=== PATIENT | female | born 1945 | race Caucasian/White ===

== ENCOUNTER 2016-06-29 07:18 | Day surgery (SDC) | payer MEDICARE, OTHER ==
[~2016-06-29 07:18] MED LIST: Lactated Ringers 1,000 ML IV SCH; Sodium Chloride 0.9% 10 ML Syringe FLUSH PRN
[2016-06-29] MEDS ORDERED: Propofol 200 MG/20 ML SDV IV ONE (08:30)
--- NOTE | 2016-06-29 08:58 | PCM.OPNOTE ---
- General Post-Op/Procedure Note Date of Surgery/Procedure: 06/29/16 Operative Procedure(s): c scope Findings: normal exam Pre Op Diagnosis: personal hx of colon polyp Post-Op Diagnosis: nl colon Anesthesia Technique: MAC Primary Surgeon: Julian Bowie Anesthesia Provider: Avery Ingram Pathology: none Complications: None Condition: Good Free Text/Narrative:: see dictation
--- NOTE | 2016-06-29 09:27 | OR ---
DATE OF OPERATION: 06/29/2016 SURGEON: Julian Bowie MD PROCEDURE PERFORMED: Colonoscopy. PREOPERATIVE DIAGNOSIS: Personal history of colon polyps. POSTOPERATIVE DIAGNOSIS: Normal colon. INDICATIONS FOR PROCEDURE: This is a 70-year-old white female with a personal history of adenomatous polyps. She presents now for followup colonoscopy. DESCRIPTION OF OPERATION: After an excellent IV sedation was administered, digital rectal exam was performed. No marked abnormality was noted. The flexible colonoscope was inserted and advanced to the cecum without difficulty. The following findings were noted. Ascending colon, unremarkable. Transverse colon, unremarkable. Descending colon, unremarkable. Sigmoid and rectum unremarkable. Colon was deflated as the scope was removed. The patient tolerated the procedure well and was taken to recovery room in good condition. Repeat colonoscopy recommended in 10 years, isabel barnhart /[id number] /MODL
[2016-06-29 09:38] VITALS: BP 123/60
== END 2016-06-29 10:00 | disposition home or self-care (01) ==
LOC: FB.SDS 07:18
PROVIDERS: ATTEND Surgery
PROC: 0DJD8ZZ Inspection of Lower Intestinal Tract, Via Natural or Artificial Opening Endoscopic (ICD-10-PCS; principal; 2016-06-29)
DX: Z12.11 Encounter for screening for malignant neoplasm of colon (principal); Z86.010 Personal history of colon polyps; Z79.899 Other long term (current) drug therapy; E78.2 Mixed hyperlipidemia; I10 Essential (primary) hypertension
CPT/HCPCS: 00810; G0121; J2704; J7120

== ENCOUNTER 2021-04-12 01:23 | Observation (INO) | payer MEDICARE, OTHER ==
[2021-04-12] MEDS ORDERED: Sodium Chloride 0.9% 1,000 ML IV ONE ×3 (01:41→04:15)
--- NOTE | 2021-04-12 01:49 | EDM.PDOC ---
ED HPI GENERAL MEDICAL PROBLEM - General Chief Complaint: General Stated Complaint: PASSING BLOOD Time Seen by Provider: 04/12/21 01:25 Source of Information: Reports: Patient, Family History Limitations: Reports: No Limitations - History of Present Illness INITIAL COMMENTS - FREE TEXT/NARRATIVE: c/o BRBPR pt ate salad at [employer] at lunch, on arriving home with at 3:30p she rushed to bathroom and passed loose stools that "looked a little dark," had V x 1 had 4 more episodes of loose stools with BRB, some cramping of lower abd prior to stool, some soreness now in suprapubic area last colonoscopy here ~3y ago with Dr Bowie, reports no polyps, says it "was normal," next colonscopy planned in 10 yr not on ASA or anticoagulation no prior CV or pul problems has had JOHNSON with BSO, into 2017 she had bladder and vaginal wall reconstruction, no other abd surgeries has had COVID vax x 2 and booster, no had COVID illness Lower Abdomen Pain Score (Numeric/FACES): 5 - Related Data Allergies Allergy/AdvReac Type Severity Reaction Status Date / Time meperidine HCl [From Demerol] Allergy Nausea and Verified 03/26/13 08:18 Vomiting Home Meds: Home Meds Simvastatin [Zocor] 20 mg PO DAILY 03/25/13 [History] lisinopriL [Prinivil] 20 mg PO DAILY 03/25/13 [History] Past Medical History - Past Health History Medical/Surgical History: Denies Medical/Surgical History HEENT History: Reports: Cataract Cardiovascular History: Reports: High Cholesterol, Hypertension Gastrointestinal History: Reports: Colon Polyp Genitourinary History: Reports: Other (See Below) Other Genitourinary History: PROLAPSE BLADDER; DOCTORING IN [employer] History: Reports: Musculoskeletal History: Reports: None Neurological History: Reports: None Psychiatric History: Reports: None Endocrine/Metabolic History: Reports: Multinodular Thyroid, Osteopenia Hematologic History: Reports: None Immunologic History: Reports: None Oncologic (Cancer) History: Reports: None Dermatologic History: Reports: None - Past Surgical History HEENT Surgical History: Reports: Cataract Surgery Female Surgical History: Reports: Hysterectomy, Salpingo-Oophorectomy Social & Family History - Caffeine Use Caffeine Use: Reports: Coffee ED ROS GENERAL - Review of Systems Review Of Systems: See Below Constitutional: Reports: No Symptoms. Denies: Fever, Chills, Malaise, Weakness HEENT: Reports: No Symptoms Respiratory: Reports: No Symptoms. Denies: Shortness of Breath Cardiovascular: Reports: No Symptoms. Denies: Chest Pain Endocrine: Reports: No Symptoms GI/Abdominal: Reports: Abdominal Pain, Bloody Stool, Diarrhea, Hematemesis : Reports: No Symptoms Musculoskeletal: Reports: No Symptoms Skin: Reports: No Symptoms Neurological: Reports: No Symptoms Psychiatric: Reports: No Symptoms Hematologic/Lymphatic: Reports: No Symptoms Immunologic: Reports: No Symptoms ED EXAM, GENERAL - Physical Exam Exam: See Below Exam Limited By: No Limitations General Appearance: Alert, WD/WN, No Apparent Distress Eye Exam: Bilateral Eye: Normal Inspection Ears: Hearing Grossly Normal Nose: Normal Inspection Throat/Mouth: Normal Inspection, Normal Lips, Normal Voice, No Airway Compromise Head: Atraumatic, Normocephalic Neck: Normal Inspection Respiratory/Chest: No Respiratory Distress, Lungs Clear, Normal Breath Sounds, No Accessory Muscle Use, Chest Non-Tender Cardiovascular: No Edema, No Murmur, No Rub, Tachycardia GI/Abdominal: Normal Bowel Sounds, Soft, No Distention, Other (1+ suprapubic tender and just to right and left of midline, nontender LLQ/RUQ, flanks NT, upper abd NT) Rectal (Female) Exam: Normal Exam, Other (tight sphincter and unable to do MARY with help of RN Bella, using glove and gel, no ext hemorrhoids, no perianal blood) Back Exam: Normal Inspection, Full Range of Motion, NT Extremities: Normal Inspection, Non-Tender, No Pedal Edema Neurological: Alert, Oriented, CN II-XII Intact, Normal Cognition, No Motor/Sensory Deficits Psychiatric: Normal Affect, Normal Mood Skin Exam: Warm, Dry, Intact, Normal Color, No Rash Lymphatic: No Adenopathy (repeat HR 113 with BP 190/89, mild to moderate anxiety) Course - Vital Signs Last Recorded V/S: Last Vital Signs Temp 36.4 C 04/12/21 01:26 Pulse 99 04/12/21 02:56 Resp 19 04/12/21 02:06 BP 192/92 H 04/12/21 02:56 Pulse Ox 95 04/12/21 02:56 - Orders/Labs/Meds Orders: Active Orders 24 hr Category Date Time Status Admission Status [Patient Status] [ADT] Routine ADT 04/12/21 03:22 Ordered Abdomen Pelvis w Cont [CT] Stat Exams 04/12/21 01:47 Ordered Sodium Chloride 0.9% [Normal Saline] 1,000 ml Med 04/12/21 02:40 Ordered IV .BOLUS Medication Orders Sodium Chloride (Normal Saline) 1,000 mls @ 999 mls/hr IV .BOLUS ONE Stop: 04/12/21 03:40 Last Admin: 04/12/21 03:03 Dose: 999 mls/hr Documented by: ITALIA Labs: Laboratory Tests 04/12/21 04/12/21 04/12/21 Range/Units 01:45 01:45 01:45 WBC 10.2 (3.0-10.3) x10-3/uL RBC 4.40 (3.60-5.20) x10(6)uL Hgb 13.3 (11.4-15.5) g/dL Hct 39.6 (34.2-48.2) % MCV 90.0 (76.7-100.5) fL MCH 30.2 (23.9-33.9) pg MCHC 33.5 (31.9-34.8) g/dL RDW 13.4 (12.3-16.5) % Plt Count 289 (151-488) x10(3)uL MPV 8.1 (7.1-12.4) fL Neut % (Auto) 79.7 H (30.8-76.2) % Lymph % (Auto) 11.8 L (18.4-52.1) % [place] % (Auto) 7.6 (4.4-15.7) % Eos % (Auto) 0.5 L (0.6-8.1) % Baso % (Auto) 0.4 (0.2-1.5) % Neut # (Auto) 8.1 H (1.5-6.3) x10-3/uL Lymph # (Auto) 1.2 (1.0-4.4) x10-3/uL [place] # (Auto) 0.8 (0.3-1.0) x10-3/uL Eos # (Auto) 0.1 (0.0-0.8) x10-3/uL Baso # (Auto) 0.0 (0.0-0.1) x10-3/uL PT 10.1 (9.0-11.1) sec INR 0.94 L (1.00-1.24) Sodium 141 (135-145) mmol/L Potassium 3.9 (3.5-5.3) mmol/L Chloride 104 (100-110) mmol/L Carbon Dioxide 26 (21-32) mmol/L BUN 19 H (7-18) mg/dL Creatinine 1.2 H (0.55-1.02) mg/dL Est Cr Clr Drug Dosing 34.54 mL/min Estimated GFR (MDRD) 44 L (>60) BUN/Creatinine Ratio 15.8 (9-20) Glucose 126 H (80-116) mg/dL Calcium 9.1 (8.6-10.2) mg/dL Total Bilirubin 0.6 (0.1-1.3) mg/dL AST 24 (5-25) IU/L ALT 22 (12-36) U/L Alkaline Phosphatase 75 (56-112) IU/L Troponin I (4.0-60.3) pg/mL C-Reactive Protein (0.5-0.9) mg/dL Total Protein 7.5 (6.0-8.0) g/dL Albumin 4.1 (3.2-4.6) g/dL Globulin 3.4 g/dL Albumin/Globulin Ratio 1.2 Lipase (73-393) U/L Urine Color (YELLOW) Urine Appearance (CLEAR) Urine pH (5.0-6.5) Ur Specific [place] (1.010-1.025) Urine Protein (NEGATIVE) mg/dL Urine Glucose (UA) (NORMAL) mg/dL Urine Ketones (NEGATIVE) mg/dL Urine Occult Blood (NEGATIVE) Urine Nitrite (NEGATIVE) Urine Bilirubin (NEGATIVE) Urine Urobilinogen (NEGATIVE) mg/dL Ur Leukocyte Esterase (NEGATIVE) U Hyaline Cast (Auto) (NS) Urine RBC (0-5) Urine WBC (0-5) Ur Squamous Epith Cells (NS,R,O) Urine Bacteria (NS) SARS-CoV-2 RNA (FE) (NEGATIVE) 01/04/22 01/04/22 01/04/22 Range/Units 01:45 01:45 01:45 WBC (3.0-10.3) x10-3/uL RBC (3.60-5.20) x10(6)uL Hgb (11.4-15.5) g/dL Hct (34.2-48.2) % MCV (76.7-100.5) fL MCH (23.9-33.9) pg MCHC (31.9-34.8) g/dL RDW (12.3-16.5) % Plt Count (151-488) x10(3)uL MPV (7.1-12.4) fL Neut % (Auto) (30.8-76.2) % Lymph % (Auto) (18.4-52.1) % [place] % (Auto) (4.4-15.7) % Eos % (Auto) (0.6-8.1) % Baso % (Auto) (0.2-1.5) % Neut # (Auto) (1.5-6.3) x10-3/uL Lymph # (Auto) (1.0-4.4) x10-3/uL [place] # (Auto) (0.3-1.0) x10-3/uL Eos # (Auto) (0.0-0.8) x10-3/uL Baso # (Auto) (0.0-0.1) x10-3/uL PT (9.0-11.1) sec INR (1.00-1.24) Sodium (135-145) mmol/L Potassium (3.5-5.3) mmol/L Chloride (100-110) mmol/L Carbon Dioxide (21-32) mmol/L BUN (7-18) mg/dL Creatinine (0.55-1.02) mg/dL Est Cr Clr Drug Dosing mL/min Estimated GFR (MDRD) (>60) BUN/Creatinine Ratio (9-20) Glucose (80-116) mg/dL Calcium (8.6-10.2) mg/dL Total Bilirubin (0.1-1.3) mg/dL AST (5-25) IU/L ALT (12-36) U/L Alkaline Phosphatase (56-112) IU/L Troponin I 57.4 (4.0-60.3) pg/mL C-Reactive Protein < 0.2 L (0.5-0.9) mg/dL Total Protein (6.0-8.0) g/dL Albumin (3.2-4.6) g/dL Globulin g/dL Albumin/Globulin Ratio Lipase 306 (73-393) U/L Urine Color (YELLOW) Urine Appearance (CLEAR) Urine pH (5.0-6.5) Ur Specific [place] (1.010-1.025) Urine Protein (NEGATIVE) mg/dL Urine Glucose (UA) (NORMAL) mg/dL Urine Ketones (NEGATIVE) mg/dL Urine Occult Blood (NEGATIVE) Urine Nitrite (NEGATIVE) Urine Bilirubin (NEGATIVE) Urine Urobilinogen (NEGATIVE) mg/dL Ur Leukocyte Esterase (NEGATIVE) U Hyaline Cast (Auto) (NS) Urine RBC (0-5) Urine WBC (0-5) Ur Squamous Epith Cells (NS,R,O) Urine Bacteria (NS) SARS-CoV-2 RNA (FE) (NEGATIVE) 04/12/21 04/12/21 Range/Units 02:01 02:20 WBC (3.0-10.3) x10-3/uL RBC (3.60-5.20) x10(6)uL Hgb (11.4-15.5) g/dL Hct (34.2-48.2) % MCV (76.7-100.5) fL MCH (23.9-33.9) pg MCHC (31.9-34.8) g/dL RDW (12.3-16.5) % Plt Count (151-488) x10(3)uL MPV (7.1-12.4) fL Neut % (Auto) (30.8-76.2) % Lymph % (Auto) (18.4-52.1) % [place] % (Auto) (4.4-15.7) % Eos % (Auto) (0.6-8.1) % Baso % (Auto) (0.2-1.5) % Neut # (Auto) (1.5-6.3) x10-3/uL Lymph # (Auto) (1.0-4.4) x10-3/uL [place] # (Auto) (0.3-1.0) x10-3/uL Eos # (Auto) (0.0-0.8) x10-3/uL Baso # (Auto) (0.0-0.1) x10-3/uL PT (9.0-11.1) sec INR (1.00-1.24) Sodium (135-145) mmol/L Potassium (3.5-5.3) mmol/L Chloride (100-110) mmol/L Carbon Dioxide (21-32) mmol/L BUN (7-18) mg/dL Creatinine (0.55-1.02) mg/dL Est Cr Clr Drug Dosing mL/min Estimated GFR (MDRD) (>60) BUN/Creatinine Ratio (9-20) Glucose (80-116) mg/dL Calcium (8.6-10.2) mg/dL Total Bilirubin (0.1-1.3) mg/dL AST (5-25) IU/L ALT (12-36) U/L Alkaline Phosphatase (56-112) IU/L Troponin I (4.0-60.3) pg/mL C-Reactive Protein (0.5-0.9) mg/dL Total Protein (6.0-8.0) g/dL Albumin (3.2-4.6) g/dL Globulin g/dL Albumin/Globulin Ratio Lipase (73-393) U/L Urine Color Yellow (YELLOW) Urine Appearance Clear (CLEAR) Urine pH 5.0 (5.0-6.5) Ur Specific [place] 1.025 (1.010-1.025) Urine Protein 30 H (NEGATIVE) mg/dL Urine Glucose (UA) Normal (NORMAL) mg/dL Urine Ketones 50 H (NEGATIVE) mg/dL Urine Occult Blood Moderate H (NEGATIVE) Urine Nitrite Negative (NEGATIVE) Urine Bilirubin Negative (NEGATIVE) Urine Urobilinogen Normal (NEGATIVE) mg/dL Ur Leukocyte Esterase Small H (NEGATIVE) U Hyaline Cast (Auto) Moderate H (NS) Urine RBC 0-5 (0-5) Urine WBC 0-5 (0-5) Ur Squamous Epith Cells Occasional (NS,R,O) Urine Bacteria Rare H (NS) SARS-CoV-2 RNA (FE) Negative (NEGATIVE) Meds: Medications Generic Name Dose Route Start Last Admin Trade Name Freq PRN Reason Stop Dose Admin Sodium Chloride 1,000 mls @ 999 mls/hr 04/12/21 02:40 04/12/21 03:03 Normal Saline IV 04/12/21 03:40 999 mls/hr .BOLUS ONE Administration Discontinued Medications Generic Name Dose Route Start Last Admin Trade Name Ebenezer PRN Reason Stop Dose Admin Sodium Chloride 1,000 mls @ 999 mls/hr 04/12/21 01:41 04/12/21 02:04 Normal Saline IV 04/12/21 02:41 999 mls/hr .BOLUS ONE Administration Iopamidol 75 ml 04/12/21 02:23 04/12/21 02:34 Iopamidol 755 Mg/Ml 75 Ml Bottle IV 04/12/21 02:24 75 ml ONETIME ONE Administration - Re-Assessments/Exams Free Text/Narrative Re-Assessment/Exam: 04/12/21 03:12 CT abd/pelvis with IV contrast with mod wall thickening of descending colon, doubt ischemia, suspect infectious colitis, IBD is a consideration altho less likely inc'd BUN/creat without comparison COVID neg urine with 50 mg/dl ketones passed 20 ml red/maroon blood with one small clot no n/v here in ED will plan to admit for IV antbxs and IVFs, d/w Shelbi charge nurse no surgeon on-call, Dr Fernando will be rounding in AM and doing procedures 04/12/21 03:24 pt agrees to admission, she just passed a second BM while in ED, again 20 ml of red/maroon blood, no stool Departure - Departure Time of Disposition: 03:26 Disposition: Refer to Observation Condition: Good Clinical Impression: Hematochezia, Colitis, Abdominal pain, Acute renal insufficiency, Moderate dehydration, Elevated blood pressure, situational - Discharge Information *PRESCRIPTION DRUG MONITORING PROGRAM REVIEWED*: Not Applicable *COPY OF PRESCRIPTION DRUG MONITORING REPORT IN PATIENT KARYN: Not Applicable Forms: ED Department Discharge Sepsis Event Note (ED) - Evaluation Sepsis Screening Result: No Definite Risk - Focused Exam Vital Signs: Vital Signs Temp Pulse Resp BP Pulse Ox 04/12/21 02:56 99 192/92 H 95 04/12/21 02:06 97 19 190/89 H 97 04/12/21 01:26 36.4 C 130 H 20 262/148 H 98 - My Orders Last 24 Hours: My Active Orders 04/12/21 01:47 Abdomen Pelvis w Cont [CT] Stat 04/12/21 02:40 Sodium Chloride 0.9% [Normal Saline] 1,000 ml IV .BOLUS 04/12/21 03:22 Admission Status [Patient Status] [ADT] Routine - Assessment/Plan Last 24 Hours: My Active Orders 04/12/21 01:47 Abdomen Pelvis w Cont [CT] Stat 04/12/21 02:40 Sodium Chloride 0.9% [Normal Saline] 1,000 ml IV .BOLUS 04/12/21 03:22 Admission Status [Patient Status] [ADT] Routine
[2021-04-12] MEDS ORDERED: Iopamidol 755 Mg/ML 75 ML Bottle IV ONE (02:23)
[2021-04-12] MEDS: Sodium Chloride 0.9% 1,000 ML IV ONE ×2 (03:03→04:15)
[2021-04-12] MEDS ORDERED: Aluminum Hydroxide/Magnesium Hydroxide Susp 30 ML Cup PO PRN (03:31)
[2021-04-12] MEDS ORDERED: Zolpidem 5 MG Tab PO PRN (03:31)
[2021-04-12] MEDS ORDERED: Ondansetron 4 MG/2 ML SDV IV PRN (03:31)
[2021-04-12] MEDS ORDERED: Piperacillin/Tazobactam 4.5 GM in Sodium Chloride 0.9% 100 ML IV SCH (03:45)
[2021-04-12] MEDS ORDERED: Piperacillin/Tazobactam 2.25 GM in Sodium Chloride 0.9% 50 ML IV SCH (04:00)
[2021-04-12] MEDS: Acetaminophen 500 MG Tab PO SCH ×4 (05:09→21:00)
[2021-04-12] MEDS: Pantoprazole 40 MG Vial IVPUSH SCH (05:33)
[2021-04-12] MEDS: Dextrose 5%-0.45% NaCl 1,000 ML IV SCH ×4 (05:56→22:13)
[2021-04-12] MEDS ORDERED: Labetalol 20 MG/4 ML Syringe IVPUSH ONE (08:30)
[2021-04-12] MEDS ORDERED: Morphine 4 MG/ML VIAL IVPUSH PRN (08:30)
[2021-04-12] MEDS ORDERED: Sodium Chloride 0.9% 10 ML Syringe FLUSH PRN (08:43)
--- NOTE | 2021-04-12 08:44 | PCM.HP.2 ---
H&P History of Present Illness - General Date of Service: 04/12/21 Admit Problem/Dx: Admission Diagnosis/Problem Admission Diagnosis/Problem Colitis Source of Information: Patient History Limitations: Reports: No Limitations - History of Present Illness Initial Comments - Free Text/Narative: Stephanie presented to the ED last night with abdominal cramping, and diarrhea with stools streaked with blood. This was fairly sudden onset yesterday afternoon. She also has nausea, but denies any systemic symptoms of fever or chills. Has a history of hypertension, hyperlipidemia well controlled. She said the radical abdominal hysterectomy.No recent antibiotic use Lower Abdomen Pain Score (Numeric/FACES): 5 - Related Data Allergies/Adverse Reactions: Allergies Allergy/AdvReac Type Severity Reaction Status Date / Time meperidine HCl [From Demerol] Allergy Nausea and Verified 03/26/13 08:18 Vomiting Home Medications: Home Meds Simvastatin [Zocor] 20 mg PO BEDTIME 03/25/13 [History] lisinopriL [Prinivil] 20 mg PO DAILY 03/25/13 [History] Past Medical History - Past Health History Medical/Surgical History: Denies Medical/Surgical History HEENT History: Reports: Cataract Cardiovascular History: Reports: High Cholesterol, Hypertension Gastrointestinal History: Reports: Colon Polyp Genitourinary History: Reports: Other (See Below) Other Genitourinary History: Bladder surgery December 2016 in [facility]. [employer] History: Reports: Musculoskeletal History: Reports: None Neurological History: Reports: None Psychiatric History: Reports: None Endocrine/Metabolic History: Reports: Multinodular Thyroid, Osteopenia, Other (See Below) Other Endocrine/Metabolic History: Continues to monitor Thyroid with her speci alist. . Hematologic History: Reports: None Immunologic History: Reports: None Oncologic (Cancer) History: Reports: None Dermatologic History: Reports: None - Infectious Disease History Infectious Disease History: Reports: Other (See Below) Other Infectious Disease History: Denies MRSA. - Past Surgical History HEENT Surgical History: Reports: Cataract Surgery, Other (See Below) Other HEENT Surgeries/Procedures: Bilateral. GI Surgical History: Reports: Colonoscopy, Polypectomy Female Surgical History: Reports: Hysterectomy, Salpingo-Oophorectomy Social & Family History - Family History Family Medical History: No Pertinent Family History - Tobacco Use Tobacco Use Status *Q: Never Tobacco User - Caffeine Use Caffeine Use: Reports: Coffee - Recreational Drug Use Recreational Drug Use: No H&P Review of Systems - Review of Systems: Review Of Systems: Comprehensive ROS is negative, except as noted in HPI. Exam - Exam Exam: See Below - Vital Signs Vital Signs: Last Vital Signs Temp 98 F 04/12/21 05:50 Pulse 93 04/12/21 05:50 Resp 18 04/12/21 05:50 BP 168/77 H 04/12/21 05:50 Pulse Ox 98 04/12/21 05:50 Weight: 67.948 kg - Exam HEENT: PERRLA Neck: Supple Lungs: Clear to Auscultation Cardiovascular: Regular Rate GI/Abdominal Exam: Soft, Guarding, Tender. No: Distended, Rebound, Splenomegaly (Female) Exam: Deferred Rectal (Female) Exam: Deferred Back Exam: Normal Inspection Extremities: Normal Inspection Neurological: Cranial Nerves Intact Neuro Extensive - Mental Status: Alert, Oriented x3 Neuro Extensive - Motor, Sensory, Reflexes: CN II-XII Intact Psychiatric: Alert - Patient Data Lab Results Last 24 hrs: Laboratory Results - last 24 hr 04/12/21 04/12/21 04/12/21 Range/Units 01:45 01:45 01:45 WBC 10.2 (3.0-10.3) x10-3/uL RBC 4.40 (3.60-5.20) x10(6)uL Hgb 13.3 (11.4-15.5) g/dL Hct 39.6 (34.2-48.2) % MCV 90.0 (76.7-100.5) fL MCH 30.2 (23.9-33.9) pg MCHC 33.5 (31.9-34.8) g/dL RDW 13.4 (12.3-16.5) % Plt Count 289 (151-488) x10(3)uL MPV 8.1 (7.1-12.4) fL Neut % (Auto) 79.7 H (30.8-76.2) % Lymph % (Auto) 11.8 L (18.4-52.1) % [place] % (Auto) 7.6 (4.4-15.7) % Eos % (Auto) 0.5 L (0.6-8.1) % Baso % (Auto) 0.4 (0.2-1.5) % Neut # (Auto) 8.1 H (1.5-6.3) x10-3/uL Lymph # (Auto) 1.2 (1.0-4.4) x10-3/uL [place] # (Auto) 0.8 (0.3-1.0) x10-3/uL Eos # (Auto) 0.1 (0.0-0.8) x10-3/uL Baso # (Auto) 0.0 (0.0-0.1) x10-3/uL PT 10.1 (9.0-11.1) sec INR 0.94 L (1.00-1.24) Sodium 141 (135-145) mmol/L Potassium 3.9 (3.5-5.3) mmol/L Chloride 104 (100-110) mmol/L Carbon Dioxide 26 (21-32) mmol/L BUN 19 H (7-18) mg/dL Creatinine 1.2 H (0.55-1.02) mg/dL Est Cr Clr Drug Dosing 34.54 mL/min Estimated GFR (MDRD) 44 L (>60) BUN/Creatinine Ratio 15.8 (9-20) Glucose 126 H (80-116) mg/dL Lactic Acid (0.4-2.0) mmol/L Calcium 9.1 (8.6-10.2) mg/dL Total Bilirubin 0.6 (0.1-1.3) mg/dL AST 24 (5-25) IU/L ALT 22 (12-36) U/L Alkaline Phosphatase 75 (56-112) IU/L Troponin I (4.0-60.3) pg/mL C-Reactive Protein (0.5-0.9) mg/dL Total Protein 7.5 (6.0-8.0) g/dL Albumin 4.1 (3.2-4.6) g/dL Globulin 3.4 g/dL Albumin/Globulin Ratio 1.2 Lipase (73-393) U/L Urine Color (YELLOW) Urine Appearance (CLEAR) Urine pH (5.0-6.5) Ur Specific [place] (1.010-1.025) Urine Protein (NEGATIVE) mg/dL Urine Glucose (UA) (NORMAL) mg/dL Urine Ketones (NEGATIVE) mg/dL Urine Occult Blood (NEGATIVE) Urine Nitrite (NEGATIVE) Urine Bilirubin (NEGATIVE) Urine Urobilinogen (NEGATIVE) mg/dL Ur Leukocyte Esterase (NEGATIVE) U Hyaline Cast (Auto) (NS) Urine RBC (0-5) Urine WBC (0-5) Ur Squamous Epith Cells (NS,R,O) Urine Bacteria (NS) SARS-CoV-2 RNA (FE) (NEGATIVE) 04/12/21 04/12/21 04/12/21 Range/Units 01:45 01:45 01:45 WBC (3.0-10.3) x10-3/uL RBC (3.60-5.20) x10(6)uL Hgb (11.4-15.5) g/dL Hct (34.2-48.2) % MCV (76.7-100.5) fL MCH (23.9-33.9) pg MCHC (31.9-34.8) g/dL RDW (12.3-16.5) % Plt Count (151-488) x10(3)uL MPV (7.1-12.4) fL Neut % (Auto) (30.8-76.2) % Lymph % (Auto) (18.4-52.1) % [place] % (Auto) (4.4-15.7) % Eos % (Auto) (0.6-8.1) % Baso % (Auto) (0.2-1.5) % Neut # (Auto) (1.5-6.3) x10-3/uL Lymph # (Auto) (1.0-4.4) x10-3/uL [place] # (Auto) (0.3-1.0) x10-3/uL Eos # (Auto) (0.0-0.8) x10-3/uL Baso # (Auto) (0.0-0.1) x10-3/uL PT (9.0-11.1) sec INR (1.00-1.24) Sodium (135-145) mmol/L Potassium (3.5-5.3) mmol/L Chloride (100-110) mmol/L Carbon Dioxide (21-32) mmol/L BUN (7-18) mg/dL Creatinine (0.55-1.02) mg/dL Est Cr Clr Drug Dosing mL/min Estimated GFR (MDRD) (>60) BUN/Creatinine Ratio (9-20) Glucose (80-116) mg/dL Lactic Acid (0.4-2.0) mmol/L Calcium (8.6-10.2) mg/dL Total Bilirubin (0.1-1.3) mg/dL AST (5-25) IU/L ALT (12-36) U/L Alkaline Phosphatase (56-112) IU/L Troponin I 57.4 (4.0-60.3) pg/mL C-Reactive Protein < 0.2 L (0.5-0.9) mg/dL Total Protein (6.0-8.0) g/dL Albumin (3.2-4.6) g/dL Globulin g/dL Albumin/Globulin Ratio Lipase 306 (73-393) U/L Urine Color (YELLOW) Urine Appearance (CLEAR) Urine pH (5.0-6.5) Ur Specific [place] (1.010-1.025) Urine Protein (NEGATIVE) mg/dL Urine Glucose (UA) (NORMAL) mg/dL Urine Ketones (NEGATIVE) mg/dL Urine Occult Blood (NEGATIVE) Urine Nitrite (NEGATIVE) Urine Bilirubin (NEGATIVE) Urine Urobilinogen (NEGATIVE) mg/dL Ur Leukocyte Esterase (NEGATIVE) U Hyaline Cast (Auto) (NS) Urine RBC (0-5) Urine WBC (0-5) Ur Squamous Epith Cells (NS,R,O) Urine Bacteria (NS) SARS-CoV-2 RNA (FE) (NEGATIVE) 04/12/21 04/12/21 04/12/21 Range/Units 02:01 02:20 04:00 WBC (3.0-10.3) x10-3/uL RBC (3.60-5.20) x10(6)uL Hgb (11.4-15.5) g/dL Hct (34.2-48.2) % MCV (76.7-100.5) fL MCH (23.9-33.9) pg MCHC (31.9-34.8) g/dL RDW (12.3-16.5) % Plt Count (151-488) x10(3)uL MPV (7.1-12.4) fL Neut % (Auto) (30.8-76.2) % Lymph % (Auto) (18.4-52.1) % [place] % (Auto) (4.4-15.7) % Eos % (Auto) (0.6-8.1) % Baso % (Auto) (0.2-1.5) % Neut # (Auto) (1.5-6.3) x10-3/uL Lymph # (Auto) (1.0-4.4) x10-3/uL [place] # (Auto) (0.3-1.0) x10-3/uL Eos # (Auto) (0.0-0.8) x10-3/uL Baso # (Auto) (0.0-0.1) x10-3/uL PT (9.0-11.1) sec INR (1.00-1.24) Sodium (135-145) mmol/L Potassium (3.5-5.3) mmol/L Chloride (100-110) mmol/L Carbon Dioxide (21-32) mmol/L BUN (7-18) mg/dL Creatinine (0.55-1.02) mg/dL Est Cr Clr Drug Dosing mL/min Estimated GFR (MDRD) (>60) BUN/Creatinine Ratio (9-20) Glucose (80-116) mg/dL Lactic Acid 1.0 (0.4-2.0) mmol/L Calcium (8.6-10.2) mg/dL Total Bilirubin (0.1-1.3) mg/dL AST (5-25) IU/L ALT (12-36) U/L Alkaline Phosphatase (56-112) IU/L Troponin I (4.0-60.3) pg/mL C-Reactive Protein (0.5-0.9) mg/dL Total Protein (6.0-8.0) g/dL Albumin (3.2-4.6) g/dL Globulin g/dL Albumin/Globulin Ratio Lipase (73-393) U/L Urine Color Yellow (YELLOW) Urine Appearance Clear (CLEAR) Urine pH 5.0 (5.0-6.5) Ur Specific [place] 1.025 (1.010-1.025) Urine Protein 30 H (NEGATIVE) mg/dL Urine Glucose (UA) Normal (NORMAL) mg/dL Urine Ketones 50 H (NEGATIVE) mg/dL Urine Occult Blood Moderate H (NEGATIVE) Urine Nitrite Negative (NEGATIVE) Urine Bilirubin Negative (NEGATIVE) Urine Urobilinogen Normal (NEGATIVE) mg/dL Ur Leukocyte Esterase Small H (NEGATIVE) U Hyaline Cast (Auto) Moderate H (NS) Urine RBC 0-5 (0-5) Urine WBC 0-5 (0-5) Ur Squamous Epith Cells Occasional (NS,R,O) Urine Bacteria Rare H (NS) SARS-CoV-2 RNA (FE) Negative (NEGATIVE) 04/12/21 04/12/21 Range/Units 06:30 06:30 WBC 9.0 (3.0-10.3) x10-3/uL RBC 3.56 L (3.60-5.20) x10(6)uL Hgb 10.8 L (11.4-15.5) g/dL Hct 32.5 L (34.2-48.2) % MCV 91.3 (76.7-100.5) fL MCH 30.4 (23.9-33.9) pg MCHC 33.2 (31.9-34.8) g/dL RDW 13.9 (12.3-16.5) % Plt Count 216 (151-488) x10(3)uL MPV 8.1 (7.1-12.4) fL Neut % (Auto) 84.8 H (30.8-76.2) % Lymph % (Auto) 8.8 L (18.4-52.1) % [place] % (Auto) 6.0 (4.4-15.7) % Eos % (Auto) 0.1 L (0.6-8.1) % Baso % (Auto) 0.3 (0.2-1.5) % Neut # (Auto) 7.6 H (1.5-6.3) x10-3/uL Lymph # (Auto) 0.8 L (1.0-4.4) x10-3/uL [place] # (Auto) 0.5 (0.3-1.0) x10-3/uL Eos # (Auto) 0.0 (0.0-0.8) x10-3/uL Baso # (Auto) 0.0 (0.0-0.1) x10-3/uL PT (9.0-11.1) sec INR (1.00-1.24) Sodium 143 (135-145) mmol/L Potassium 3.7 (3.5-5.3) mmol/L Chloride 110 D (100-110) mmol/L Carbon Dioxide 25 (21-32) mmol/L BUN 15 (7-18) mg/dL Creatinine 1.0 (0.55-1.02) mg/dL Est Cr Clr Drug Dosing 41.45 mL/min Estimated GFR (MDRD) 54 L (>60) BUN/Creatinine Ratio 15.0 (9-20) Glucose 128 H (80-116) mg/dL Lactic Acid (0.4-2.0) mmol/L Calcium 7.7 L (8.6-10.2) mg/dL Total Bilirubin (0.1-1.3) mg/dL AST (5-25) IU/L ALT (12-36) U/L Alkaline Phosphatase (56-112) IU/L Troponin I (4.0-60.3) pg/mL C-Reactive Protein (0.5-0.9) mg/dL Total Protein (6.0-8.0) g/dL Albumin (3.2-4.6) g/dL Globulin g/dL Albumin/Globulin Ratio Lipase (73-393) U/L Urine Color (YELLOW) Urine Appearance (CLEAR) Urine pH (5.0-6.5) Ur Specific [place] (1.010-1.025) Urine Protein (NEGATIVE) mg/dL Urine Glucose (UA) (NORMAL) mg/dL Urine Ketones (NEGATIVE) mg/dL Urine Occult Blood (NEGATIVE) Urine Nitrite (NEGATIVE) Urine Bilirubin (NEGATIVE) Urine Urobilinogen (NEGATIVE) mg/dL Ur Leukocyte Esterase (NEGATIVE) U Hyaline Cast (Auto) (NS) Urine RBC (0-5) Urine WBC (0-5) Ur Squamous Epith Cells (NS,R,O) Urine Bacteria (NS) SARS-CoV-2 RNA (FE) (NEGATIVE) Result Diagrams: 04/12/21 06:30 04/12/21 06:30 #1 Interpretation EKG Date: 04/12/21 Rhythm: NSR [place]: Normal P-Wave: Present QRS: Normal Comparison: NA - No Prior EKG Sepsis Event Note - Evaluation Sepsis Screening Result: No Definite Risk - Focused Exam Vital Signs: Vital Signs Temp Temp Pulse Pulse Resp BP Pulse Ox 04/12/21 05:50 98 F 93 18 168/77 H 98 04/12/21 03:40 98.2 F 98 18 191/95 H 98 04/12/21 02:56 99 192/92 H 95 04/12/21 02:06 97 19 190/89 H 97 04/12/21 01:26 97.6 F 130 H 20 262/148 H 98 - Problem List (1) Colitis SNOMED Code(s): 72220244 ICD Code: K52.9 - NONINFECTIVE GASTROENTERITIS AND COLITIS, UNSPECIFIED Status: Acute Current Visit: No (2) Abdominal pain SNOMED Code(s): 08157111 ICD Code: R10.9 - UNSPECIFIED ABDOMINAL PAIN Status: Acute Current Visit: No (3) HTN (hypertension) SNOMED Code(s): 47895144 ICD Code: I10 - ESSENTIAL (PRIMARY) HYPERTENSION Status: Acute Current Visit: Yes Qualifiers: Hypertension type: primary hypertension Qualified Code(s): I10 - Essential (primary) hypertension (4) HLD (hyperlipidemia) SNOMED Code(s): 21495711 ICD Code: E78.5 - HYPERLIPIDEMIA, UNSPECIFIED Status: Chronic Current Vis it: Yes (5) Hematochezia SNOMED Code(s): 297088441 ICD Code: K92.1 - MELENA Status: Acute Current Visit: No Problem List Initiated/Reviewed/Updated: Yes Orders Last 24hrs: Active Orders 24 hr Category Date Time Status Admission Status [Patient Status] [ADT] Routine ADT 04/12/21 03:22 Active Intake and Output [RC] 06,14,22 Care 04/12/21 03:32 Active Oxygen Therapy [RC] .PRN Care 04/12/21 03:31 Active Telemetry Monitoring [Cardiac Monitoring] [RC] 00,08,16 Care 04/12/21 03:30 Active Up With Assistance [RC] PER UNIT ROUTINE Care 04/12/21 03:31 Active Vital Signs [RC] 00,04,08,12,16,20 Care 04/12/21 03:31 Active Nothing per Oral Now Diet [DIET] Diet 04/12/21 Breakfast Active Abdomen Pelvis w Cont [CT] Stat Exams 04/12/21 01:47 Taken BASIC METABOLIC PANEL,BMP [CHEM] DAILY Lab 04/13/21 06:00 Ordered BASIC METABOLIC PANEL,BMP [CHEM] DAILY Lab 04/14/21 06:00 Ordered BASIC METABOLIC PANEL,BMP [CHEM] DAILY Lab 04/15/21 06:00 Ordered BASIC METABOLIC PANEL,BMP [CHEM] DAILY Lab 04/16/21 06:00 Ordered C DIFFICILE AG/TOXIN W/REFLEX [RM] Stat Lab 04/12/21 08:30 Ordered CBC WITH AUTO DIFF [HEME] DAILY Lab 04/13/21 06:00 Ordered CBC WITH AUTO DIFF [HEME] DAILY Lab 04/14/21 06:00 Ordered CBC WITH AUTO DIFF [HEME] DAILY Lab 04/15/21 06:00 Ordered CBC WITH AUTO DIFF [HEME] DAILY Lab 04/16/21 06:00 Ordered CULTURE BLOOD [BC] Urgent Lab 04/12/21 04:00 Received CULTURE BLOOD [BC] Urgent Lab 04/12/21 04:08 Received STOOL CULTURE Stat Lab 04/12/21 08:31 Ordered TROPONIN I [CHEM] AM Lab 04/13/21 05:11 Ordered WHITE BLOOD CELLS (WBC), STOOL Stat Lab 04/12/21 08:31 Ordered Acetaminophen [Tylenol Extra Strength] Med 04/12/21 03:45 Active 1,000 mg PO Q6H Alum Hydroxide/Mag Hydroxide [Mag-Al Susp] Med 04/12/21 03:31 Active 30 ml PO Q4H PRN Azithromycin [Zithromax] 500 mg Med 04/12/21 08:45 Ordered Sodium Chloride 0.9% [Normal Saline AdvBag] 250 ml IV Q24H Bismuth Subsalicylate [Pepto Bismol] Med 04/12/21 08:45 Ordered 30 ml PO Q6H Dextrose 5%-0.45% NaCl [Dextrose 5%-1/2 NS] 1,000 ml Med 04/12/21 05:00 Active IV ASDIRECTED Morphine Med 04/12/21 08:30 Ordered 4 mg IVPUSH Q2H PRN Ondansetron [Zofran] Med 04/12/21 03:31 Active 4 mg IV Q4H PRN Pantoprazole [ProTONIX IV] Med 04/12/21 06:00 Active 40 mg IVPUSH DAILY Saccharomyces Boulardii [Florastor] Med 04/12/21 09:00 Active 250 mg PO BID Simvastatin [Zocor] Med 04/12/21 21:00 Active 20 mg PO BEDTIME Zolpidem [Ambien] Med 04/12/21 03:31 Active 5 mg PO BEDTIME PRN lisinopriL [Prinivil] Med 04/12/21 09:00 Active 20 mg PO DAILY Blood Culture x2 Reflex Set [OM.PC] Urgent Oth 04/12/21 03:31 Ordered Resuscitation Status Routine Resus Stat 04/12/21 03:31 Ordered EKG 12 Lead [EK] AM Ther 04/13/21 05:11 Ordered Medication Orders Acetaminophen (Acetaminophen 500 Mg Tab) 1,000 mg PO Q6H [facility] Last Admin: 04/12/21 05:09 Dose: 1,000 mg Documented by: JR Al Hydroxide/Mg Hydroxide (Aluminum Hydroxide/Magnesium Hydroxide Susp 30 Ml Cup) 30 ml PO Q4H PRN PRN Reason: Heartburn Last Admin: 04/12/21 05:09 Dose: 30 ml Documented by: JR Dextrose/Sodium Chloride (Dextrose 5%-1/2 Ns) 1,000 mls @ 200 mls/hr IV ASDIRECTED [facility] Last Admin: 04/12/21 05:56 Dose: 200 mls/hr Documented by: JR Azithromycin 500 mg/ Sodium (Chloride) 250 mls @ 250 mls/hr IV Q24H [facility] Lisinopril (Lisinopril 20 Mg Tab *Ptom) 20 mg PO DAILY [facility] Morphine Sulfate (Morphine 4 Mg/Ml Vial) 4 mg IVPUSH Q2H PRN PRN Reason: Abdominal Pain Ondansetron HCl (Ondansetron 4 Mg/2 Ml Sdv) 4 mg IV Q4H PRN PRN Reason: Nausea/Vomiting Last Admin: 04/12/21 08:33 Dose: 4 mg Documented by: JUNITO Pantoprazole Sodium (Pantoprazole 40 Mg Vial) 40 mg IVPUSH DAILY [facility] Last Admin: 04/12/21 05:33 Dose: 40 mg Documented by: JR Saccharomyces Boulardii (Saccharomyces Boulardii (Probiotic) 250 Mg Cap) 250 mg PO BID [facility] Simvastatin (Simvastatin 40 Mg Tab) 20 mg PO BEDTIME [facility] Zolpidem Tartrate (Zolpidem 5 Mg Tab) 5 mg PO BEDTIME PRN PRN Reason: Sleep Assessment/Plan Comment:: CT abdomen and pelvis favored colitis, either ischemic or inflammatory bowel. I will obtain a stool test for C. difficile, and Shiga toxin. Replace IV fluids. Empiric antibiotic therapy with azithromycin or fluoroquinolones.Control B P.Consult Surgery.
[2021-04-12] MEDS: Saccharomyces Boulardii (Probiotic) 250 MG Cap PO SCH ×2 (08:45→21:00)
[2021-04-12] MEDS: Lisinopril 20 MG Tab *PTOM PO SCH (08:45)
[2021-04-12] MEDS ORDERED: Bismuth Subsalicylate 262 MG/15 ML Susp 236 ML Bottle PO SCH (09:00)
[2021-04-12] MEDS: Azithromycin 500 MG in Sodium Chloride 0.9% 250 ML IV SCH (09:18)
[2021-04-12] MEDS: Bismuth Subsalicylate 262 MG/15 ML Susp 236 ML Bottle PO SCH ×3 (09:18→20:57)
--- NOTE | 2021-04-12 11:28 | PCM.CONS ---
H&P History of Present Illness - General Date of Service: 04/12/21 Admit Problem/Dx: Admission Diagnosis/Problem Admission Diagnosis/Problem Colitis Source of Information: Patient, Family, Old Records History Limitations: Reports: No Limitations - History of Present Illness Onset of Symptoms: Reports: Sudden Symptom Onset Date: 04/11/21 Location: Reports: Abdomen (Severe cramping pain, better later this am) Quality: Reports: Other (cramping) Lower Abdomen Pain Score (Numeric/FACES): 5 - Related Data Allergies/Adverse Reactions: Allergies Allergy/AdvReac Type Severity Reaction Status Date / Time meperidine HCl [From Demerol] Allergy Nausea and Verified 03/26/13 08:18 Vomiting Home Medications: Home Meds Simvastatin [Zocor] 20 mg PO BEDTIME 03/25/13 [History] lisinopriL [Prinivil] 20 mg PO DAILY 03/25/13 [History] Past Medical History - Past Health History Medical/Surgical History: Denies Medical/Surgical History HEENT History: Reports: Cataract Cardiovascular History: Reports: High Cholesterol, Hypertension Gastrointestinal History: Reports: Colon Polyp Genitourinary History: Reports: Other (See Below) Other Genitourinary History: Bladder surgery December 2016 in [facility]. LIABILITY ANALYST History: Reports: Musculoskeletal History: Reports: None Neurological History: Reports: None Psychiatric History: Reports: None Endocrine/Metabolic History: Reports: Multinodular Thyroid, Osteopenia, Other (See Below) Other Endocrine/Metabolic History: Continues to monitor Thyroid with her specialist. . Hematologic History: Reports: None Immunologic History: Reports: None Oncologic (Cancer) History: Reports: None Dermatologic History: Reports: None - Infectious Disease History Infectious Disease History: Reports: Other (See Below) Other Infectious Disease History: Denies MRSA. - Past Surgical History HEENT Surgical History: Reports: Cataract Surgery, Other (See Below) Other HEENT Surgeries/Procedures: Bilateral. GI Surgical History: Reports: Colonoscopy, Polypectomy Female Surgical History: Reports: Hysterectomy, Salpingo-Oophorectomy Social & Family History - Family History Family Medical History: No Pertinent Family History - Tobacco Use Tobacco Use Status *Q: Never Tobacco User - Caffeine Use Caffeine Use: Reports: Coffee - Recreational Drug Use Recreational Drug Use: No H&P Review of Systems - Review of Systems: Review Of Systems: See Below General: Denies: Fever, Chills Pulmonary: Reports: No Symptoms Cardiovascular: Reports: No Symptoms Gastrointestinal: Reports: Abdominal Pain, Hematochezia (less bloody and more stool this am), Nausea Exam - Exam Exam: See Below - Vital Signs Vital Signs: Last Vital Signs Temp 98 F 04/12/21 05:50 Pulse 93 04/12/21 05:50 Resp 18 04/12/21 05:50 BP 230/99 H 04/12/21 08:45 Pulse Ox 98 04/12/21 05:50 Weight: 67.948 kg - Exam General: Alert, Oriented, Cooperative, Other (resting comfortably) GI/Abdominal Exam: Soft, Non-Tender. No: Hernia, Mass - Patient Data Lab Results Last 24 hrs: Laboratory Results - last 24 hr 04/12/21 04/12/21 04/12/21 Range/Units 01:45 01:45 01:45 WBC 10.2 (3.0-10.3) x10-3/uL RBC 4.40 (3.60-5.20) x10(6)uL Hgb 13.3 (11.4-15.5) g/dL Hct 39.6 (34.2-48.2) % MCV 90.0 (76.7-100.5) fL MCH 30.2 (23.9-33.9) pg MCHC 33.5 (31.9-34.8) g/dL RDW 13.4 (12.3-16.5) % Plt Count 289 (151-488) x10(3)uL MPV 8.1 (7.1-12.4) fL Neut % (Auto) 79.7 H (30.8-76.2) % Lymph % (Auto) 11.8 L (18.4-52.1) % [place] % (Auto) 7.6 (4.4-15.7) % Eos % (Auto) 0.5 L (0.6-8.1) % Baso % (Auto) 0.4 (0.2-1.5) % Neut # (Auto) 8.1 H (1.5-6.3) x10-3/uL Lymph # (Auto) 1.2 (1.0-4.4) x10-3/uL [place] # (Auto) 0.8 (0.3-1.0) x10-3/uL Eos # (Auto) 0.1 (0.0-0.8) x10-3/uL Baso # (Auto) 0.0 (0.0-0.1) x10-3/uL PT 10.1 (9.0-11.1) sec INR 0.94 L (1.00-1.24) Sodium 141 (135-145) mmol/L Potassium 3.9 (3.5-5.3) mmol/L Chloride 104 (100-110) mmol/L Carbon Dioxide 26 (21-32) mmol/L BUN 19 H (7-18) mg/dL Creatinine 1.2 H (0.55-1.02) mg/dL Est Cr Clr Drug Dosing 34.54 mL/min Estimated GFR (MDRD) 44 L (>60) BUN/Creatinine Ratio 15.8 (9-20) Glucose 126 H (80-116) mg/dL Lactic Acid (0.4-2.0) mmol/L Calcium 9.1 (8.6-10.2) mg/dL Total Bilirubin 0.6 (0.1-1.3) mg/dL AST 24 (5-25) IU/L ALT 22 (12-36) U/L Alkaline Phosphatase 75 (56-112) IU/L Troponin I (4.0-60.3) pg/mL C-Reactive Protein (0.5-0.9) mg/dL Total Protein 7.5 (6.0-8.0) g/dL Albumin 4.1 (3.2-4.6) g/dL Globulin 3.4 g/dL Albumin/Globulin Ratio 1.2 Lipase (73-393) U/L Urine Color (YELLOW) Urine Appearance (CLEAR) Urine pH (5.0-6.5) Ur Specific [place] (1.010-1.025) Urine Protein (NEGATIVE) mg/dL Urine Glucose (UA) (NORMAL) mg/dL Urine Ketones (NEGATIVE) mg/dL Urine Occult Blood (NEGATIVE) Urine Nitrite (NEGATIVE) Urine Bilirubin (NEGATIVE) Urine Urobilinogen (NEGATIVE) mg/dL Ur Leukocyte Esterase (NEGATIVE) U Hyaline Cast (Auto) (NS) Urine RBC (0-5) Urine WBC (0-5) Ur Squamous Epith Cells (NS,R,O) Urine Bacteria (NS) SARS-CoV-2 RNA (FE) (NEGATIVE) 04/12/21 04/12/21 04/12/21 Range/Units 01:45 01:45 01:45 WBC (3.0-10.3) x10-3/uL RBC (3.60-5.20) x10(6)uL Hgb (11.4-15.5) g/dL Hct (34.2-48.2) % MCV (76.7-100.5) fL MCH (23.9-33.9) pg MCHC (31.9-34.8) g/dL RDW (12.3-16.5) % Plt Count (151-488) x10(3)uL MPV (7.1-12.4) fL Neut % (Auto) (30.8-76.2) % Lymph % (Auto) (18.4-52.1) % [place] % (Auto) (4.4-15.7) % Eos % (Auto) (0.6-8.1) % Baso % (Auto) (0.2-1.5) % Neut # (Auto) (1.5-6.3) x10-3/uL Lymph # (Auto) (1.0-4.4) x10-3/uL [place] # (Auto) (0.3-1.0) x10-3/uL Eos # (Auto) (0.0-0.8) x10-3/uL Baso # (Auto) (0.0-0.1) x10-3/uL PT (9.0-11.1) sec INR (1.00-1.24) Sodium (135-145) mmol/L Potassium (3.5-5.3) mmol/L Chloride (100-110) mmol/L Carbon Dioxide (21-32) mmol/L BUN (7-18) mg/dL Creatinine (0.55-1.02) mg/dL Est Cr Clr Drug Dosing mL/min Estimated GFR (MDRD) (>60) BUN/Creatinine Ratio (9-20) Glucose (80-116) mg/dL Lactic Acid (0.4-2.0) mmol/L Calcium (8.6-10.2) mg/dL Total Bilirubin (0.1-1.3) mg/dL AST (5-25) IU/L ALT (12-36) U/L Alkaline Phosphatase (56-112) IU/L Troponin I 57.4 (4.0-60.3) pg/mL C-Reactive Protein < 0.2 L (0.5-0.9) mg/dL Total Protein (6.0-8.0) g/dL Albumin (3.2-4.6) g/dL Globulin g/dL Albumin/Globulin Ratio Lipase 306 (73-393) U/L Urine Color (YELLOW) Urine Appearance (CLEAR) Urine pH (5.0-6.5) Ur Specific [place] (1.010-1.025) Urine Protein (NEGATIVE) mg/dL Urine Glucose (UA) (NORMAL) mg/dL Urine Ketones (NEGATIVE) mg/dL Urine Occult Blood (NEGATIVE) Urine Nitrite (NEGATIVE) Urine Bilirubin (NEGATIVE) Urine Urobilinogen (NEGATIVE) mg/dL Ur Leukocyte Esterase (NEGATIVE) U Hyaline Cast (Auto) (NS) Urine RBC (0-5) Urine WBC (0-5) Ur Squamous Epith Cells (NS,R,O) Urine Bacteria (NS) SARS-CoV-2 RNA (FE) (NEGATIVE) 04/12/21 04/12/21 04/12/21 Range/Units 02:01 02:20 04:00 WBC (3.0-10.3) x10-3/uL RBC (3.60-5.20) x10(6)uL Hgb (11.4-15.5) g/dL Hct (34.2-48.2) % MCV (76.7-100.5) fL MCH (23.9-33.9) pg MCHC (31.9-34.8) g/dL RDW (12.3-16.5) % Plt Count (151-488) x10(3)uL MPV (7.1-12.4) fL Neut % (Auto) (30.8-76.2) % Lymph % (Auto) (18.4-52.1) % [place] % (Auto) (4.4-15.7) % Eos % (Auto) (0.6-8.1) % Baso % (Auto) (0.2-1.5) % Neut # (Auto) (1.5-6.3) x10-3/uL Lymph # (Auto) (1.0-4.4) x10-3/uL [place] # (Auto) (0.3-1.0) x10-3/uL Eos # (Auto) (0.0-0.8) x10-3/uL Baso # (Auto) (0.0-0.1) x10-3/uL PT (9.0-11.1) sec INR (1.00-1.24) Sodium (135-145) mmol/L Potassium (3.5-5.3) mmol/L Chloride (100-110) mmol/L Carbon Dioxide (21-32) mmol/L BUN (7-18) mg/dL Creatinine (0.55-1.02) mg/dL Est Cr Clr Drug Dosing mL/min Estimated GFR (MDRD) (>60) BUN/Creatinine Ratio (9-20) Glucose (80-116) mg/dL Lactic Acid 1.0 (0.4-2.0) mmol/L Calcium (8.6-10.2) mg/dL Total Bilirubin (0.1-1.3) mg/dL AST (5-25) IU/L ALT (12-36) U/L Alkaline Phosphatase (56-112) IU/L Troponin I (4.0-60.3) pg/mL C-Reactive Protein (0.5-0.9) mg/dL Total Protein (6.0-8.0) g/dL Albumin (3.2-4.6) g/dL Globulin g/dL Albumin/Globulin Ratio Lipase (73-393) U/L Urine Color Yellow (YELLOW) Urine Appearance Clear (CLEAR) Urine pH 5.0 (5.0-6.5) Ur Specific [place] 1.025 (1.010-1.025) Urine Protein 30 H (NEGATIVE) mg/dL Urine Glucose (UA) Normal (NORMAL) mg/dL Urine Ketones 50 H (NEGATIVE) mg/dL Urine Occult Blood Moderate H (NEGATIVE) Urine Nitrite Negative (NEGATIVE) Urine Bilirubin Negative (NEGATIVE) Urine Urobilinogen Normal (NEGATIVE) mg/dL Ur Leukocyte Esterase Small H (NEGATIVE) U Hyaline Cast (Auto) Moderate H (NS) Urine RBC 0-5 (0-5) Urine WBC 0-5 (0-5) Ur Squamous Epith Cells Occasional (NS,R,O) Urine Bacteria Rare H (NS) SARS-CoV-2 RNA (FE) Negative (NEGATIVE) 04/12/21 04/12/21 Range/Units 06:30 06:30 WBC 9.0 (3.0-10.3) x10-3/uL RBC 3.56 L (3.60-5.20) x10(6)uL Hgb 10.8 L (11.4-15.5) g/dL Hct 32.5 L (34.2-48.2) % MCV 91.3 (76.7-100.5) fL MCH 30.4 (23.9-33.9) pg MCHC 33.2 (31.9-34.8) g/dL RDW 13.9 (12.3-16.5) % Plt Count 216 (151-488) x10(3)uL MPV 8.1 (7.1-12.4) fL Neut % (Auto) 84.8 H (30.8-76.2) % Lymph % (Auto) 8.8 L (18.4-52.1) % [place] % (Auto) 6.0 (4.4-15.7) % Eos % (Auto) 0.1 L (0.6-8.1) % Baso % (Auto) 0.3 (0.2-1.5) % Neut # (Auto) 7.6 H (1.5-6.3) x10-3/uL Lymph # (Auto) 0.8 L (1.0-4.4) x10-3/uL [place] # (Auto) 0.5 (0.3-1.0) x10-3/uL Eos # (Auto) 0.0 (0.0-0.8) x10-3/uL Baso # (Auto) 0.0 (0.0-0.1) x10-3/uL PT (9.0-11.1) sec INR (1.00-1.24) Sodium 143 (135-145) mmol/L Potassium 3.7 (3.5-5.3) mmol/L Chloride 110 D (100-110) mmol/L Carbon Dioxide 25 (21-32) mmol/L BUN 15 (7-18) mg/dL Creatinine 1.0 (0.55-1.02) mg/dL Est Cr Clr Drug Dosing 41.45 mL/min Estimated GFR (MDRD) 54 L (>60) BUN/Creatinine Ratio 15.0 (9-20) Glucose 128 H (80-116) mg/dL Lactic Acid (0.4-2.0) mmol/L Calcium 7.7 L (8.6-10.2) mg/dL Total Bilirubin (0.1-1.3) mg/dL AST (5-25) IU/L ALT (12-36) U/L Alkaline Phosphatase (56-112) IU/L Troponin I (4.0-60.3) pg/mL C-Reactive Protein (0.5-0.9) mg/dL Total Protein (6.0-8.0) g/dL Albumin (3.2-4.6) g/dL Globulin g/dL Albumin/Globulin Ratio Lipase (73-393) U/L Urine Color (YELLOW) Urine Appearance (CLEAR) Urine pH (5.0-6.5) Ur Specific [place] (1.010-1.025) Urine Protein (NEGATIVE) mg/dL Urine Glucose (UA) (NORMAL) mg/dL Urine Ketones (NEGATIVE) mg/dL Urine Occult Blood (NEGATIVE) Urine Nitrite (NEGATIVE) Urine Bilirubin (NEGATIVE) Urine Urobilinogen (NEGATIVE) mg/dL Ur Leukocyte Esterase (NEGATIVE) U Hyaline Cast (Auto) (NS) Urine RBC (0-5) Urine WBC (0-5) Ur Squamous Epith Cells (NS,R,O) Urine Bacteria (NS) SARS-CoV-2 RNA (FE) (NEGATIVE) Result Diagrams: 04/12/21 06:30 04/12/21 06:30 Jair Results Last 24 hrs: Microbiology 04/12/21 09:15 C. difficile Antigen & Toxins A,B - Final Stool / Feces Imaging Impressions Last 24 hrs: CT reviewed, colitis present Sepsis Event Note - Evaluation Sepsis Screening Result: No Definite Risk - Focused Exam Vital Signs: Vital Signs Temp Temp Pulse Pulse Resp BP BP 04/12/21 08:45 230/99 H 04/12/21 05:50 98 F 93 18 168/77 H 04/12/21 03:40 98.2 F 98 18 191/95 H 04/12/21 02:56 99 192/92 H 04/12/21 02:06 97 19 190/89 H 04/12/21 01:26 97.6 F 130 H 20 262/148 H Pulse Ox 04/12/21 08:45 04/12/21 05:50 98 04/12/21 03:40 98 04/12/21 02:56 95 04/12/21 02:06 97 04/12/21 01:26 98 Consult PN Assessment/Plan Procedures: Procedures ANESTH LOW INTESTINE SCOPE (06/29/16) COLONOSCOPY AND BIOPSY (03/26/13) CT SOFT TISSUE NECK W/DYE (05/14/14) OFFICE O/P NEW SF 15-29 MIN (03/26/21) Problem List Initiated/Reviewed/Updated: Yes My Orders Last 24 Hours: Colitis. Will continue supportive care with IV fluids and pain meds. Cont IV antibiotics and swithch to oral if doing well tomorrow. It has been 5 yrs since her last colonoscopy and recommend doing one in a month or so
[2021-04-12] MEDS ORDERED: Simvastatin 40 MG Tab PO SCH (21:00)
[2021-04-13] MEDS: Bismuth Subsalicylate 262 MG/15 ML Susp 236 ML Bottle PO SCH ×2 (03:22→08:13)
[2021-04-13] MEDS: Acetaminophen 500 MG Tab PO SCH ×2 (03:22→10:30)
[2021-04-13] MEDS: Dextrose 5%-0.45% NaCl 1,000 ML IV SCH (03:22)
[2021-04-13] MEDS: Saccharomyces Boulardii (Probiotic) 250 MG Cap PO SCH (08:14)
[2021-04-13] MEDS: Lisinopril 20 MG Tab *PTOM PO SCH (08:14)
[2021-04-13] MEDS: Azithromycin 500 MG in Sodium Chloride 0.9% 250 ML IV SCH (08:22)
[2021-04-13] MEDS: Pantoprazole 40 MG Vial IVPUSH SCH (08:22)
[2021-04-13 11:14] VITALS: BP 179/74; PULSE 64
--- NOTE | 2021-04-13 21:56 | DISCH ---
DISCHARGE DATE: 04/13/2021 REASON FOR ADMISSION: 1. Hematochezia. 2. Hypertension. BRIEF HISTORY: A 75-year-old female who came in with abdominal cramps and dysentery. She was given IV fluids. Dr. Fernando was consulted. C. diff was negative, and stool studies are pending, but she was started empirically on azithromycin. She feels ready to go home today, and we will discharge her on azithromycin 250 mg daily for 4 more days. She will see me in 2 days. Return to the ED with any worsening symptoms. /[id number]
== END 2021-04-13 10:45 | disposition home or self-care (01) ==
LOC: FB.ED 01:23 → FB.MS 03:21
PROVIDERS: ADMIT Emergency Medicine; ATTEND Family Medicine
DX: K52.9 Noninfective gastroenteritis and colitis, unspecified (principal); I10 Essential (primary) hypertension; E78.00 Pure hypercholesterolemia, unspecified; Z88.8 Allergy status to other drugs, medicaments and biological substances; Z79.899 Other long term (current) drug therapy; Z98.890 Other specified postprocedural states; Z20.822 Contact with and (suspected) exposure to COVID-19
CPT/HCPCS: 36415; 74177; 80048; 80053; 81001; 83605; 83690; 84484; 85025; 85610; 86140; 87040; 87045; 87046; 87230; 87427; 89055; 93005; 96365; 96367; 96375; 96376; 99285-25; A9270-GY; C9113; G0378; J0456; J2270; J2405; J2543; J3490; J7030; J7042; J7050; Q9967; U0002

== ENCOUNTER 2021-05-16 11:20 | Day surgery (SDC) | payer MEDICARE, OTHER ==
[~2021-05-16 11:20] MED LIST changes: -Lactated Ringers 1,000 ML IV SCH
[2021-05-16] MEDS ORDERED: Propofol 200 MG/20 ML SDV IV ONE (11:21)
[2021-05-16] MEDS ORDERED: Midazolam 1 MG/ML 2 ML SDV IV ONE (11:21)
[2021-05-16] MEDS: Lactated Ringers 1,000 ML IV SCH (11:45)
[2021-05-16 15:13] VITALS: PULSE 70
[2021-05-16 15:14] VITALS: BP 136/79
== END 2021-05-16 13:55 | disposition home or self-care (01) ==
LOC: FB.SDS 11:20
PROVIDERS: ATTEND Surgery
DX: K63.5 Polyp of colon (principal); K57.30 Diverticulosis of large intestine without perforation or abscess without bleeding; K64.8 Other hemorrhoids; I10 Essential (primary) hypertension; E78.2 Mixed hyperlipidemia; Z79.899 Other long term (current) drug therapy; Z88.8 Allergy status to other drugs, medicaments and biological substances
CPT/HCPCS: 00811-QZ; 88305; J2250; J2704; J7120

== ENCOUNTER 2021-08-13 20:14 | Emergency (ER) | payer MEDICARE, OTHER ==
[2021-08-13 22:27] VITALS: BP 151/76; PULSE 80
== END 2021-08-13 23:55 | disposition home or self-care (01) ==
LOC: FB.ED 20:14
DX: M79.89 Other specified soft tissue disorders (principal); E78.00 Pure hypercholesterolemia, unspecified; I10 Essential (primary) hypertension; Z88.8 Allergy status to other drugs, medicaments and biological substances; Z79.899 Other long term (current) drug therapy
CPT/HCPCS: 36415; 71046; 80053; 83880; 84484; 85025; 85379; 93005; 93010; 99282; 99284-25

== ENCOUNTER 2025-01-29 09:08 | Observation (INO) | payer MEDICARE, OTHER ==
[2025-01-29 10:09] LABS: MEAN PLATELET VOLUME 8.6 fL (7.1-12.4); PLATELET COUNT,PLT 263 x10(3)uL (151-488); RED BLOOD CELL COUNT 3.74 x10(6)uL (3.60-5.20); RED CELL DISTRIBUTION WIDTH 13.5 % (12.3-16.5); WHITE BLOOD CELL COUNT,WBC 6.0 x10-3/uL (3.0-10.3)
[2025-01-29 10:12] LABS: BLOOD UREA NITROGEN,BUN 19 mg/dL (7-18); CARBON DIOXIDE,CO2 28 mmol/L (21-32); CHLORIDE,CL 101 mmol/L (100-110); CREATININE 0.9 mg/dL (0.55-1.02); ESTIMATED GFR 66 mL/min (>60); GLUCOSE RANDOM 120 mg/dL (80-116); POTASSIUM,K 3.9 mmol/L (3.5-5.3); SODIUM,NA 137 mmol/L (135-145)
[2025-01-29 10:14] LABS: GLUCOSE,URINE NORMAL (NORMAL); OCCULT BLOOD,URINE NEGATIVE (NEGATIVE)
[2025-01-29 10:18] LABS: A/G RATIO 1.1; ALANINE AMINOTRANSFERASE,ALT 20 U/L (12-36); ASPARTATE AMNIOTRANSFERASE,AST 25 IU/L (5-25); BILIRUBIN TOTAL 0.8 mg/dL (0.1-1.3); CREATINE KINASE,CK 87 IU/L (60-160); PROTEIN TOTAL,TP 7.3 g/dL (6.0-8.0)
[2025-01-29 10:21] LABS: APPEARANCE,URINE CLEAR (CLEAR); SQUAMOUS EPITHELIAL CELLS,UR OCCASIONAL (NS,R,O)
[2025-01-29 10:22] LABS: TSH ULTRASENSITIVE 0.67 IU/mL (0.36-3.74)
[2025-01-29 10:26] LABS: LYMPHOCYTES PERCENT MAN 6 % (13-37); MONOCYTES PERCENT MAN 8 % (4-12); SEG NEUTROPHILS PERCENT MAN 86 % (46-82)
[2025-01-29] MEDS: Iopamidol 755 Mg/ML 100 ML Bottle IV SCH (12:04)
[2025-01-29] MEDS ORDERED: Fluticasone NASAL Spray 16 GM Bottle NASBOTH PRN (14:23)
[2025-01-29] MEDS: Heparin Sodium 5,000 Units/ML Vial SUBCUT ONE (15:18)
[2025-01-30] MEDS: Heparin Sodium 5,000 Units/ML Vial SUBCUT SCH (06:28)
[2025-01-30 07:17] LABS: MEAN PLATELET VOLUME 9.1 fL (7.1-12.4); PLATELET COUNT,PLT 229 x10(3)uL (151-488); RED BLOOD CELL COUNT 3.72 x10(6)uL (3.60-5.20); RED CELL DISTRIBUTION WIDTH 13.6 % (12.3-16.5); WHITE BLOOD CELL COUNT,WBC 3.8 x10-3/uL (3.0-10.3)
[2025-01-30 07:26] LABS: A/G RATIO 1.0; ALANINE AMINOTRANSFERASE,ALT 15 U/L (12-36); ASPARTATE AMNIOTRANSFERASE,AST 23 IU/L (5-25); BILIRUBIN TOTAL 0.5 mg/dL (0.1-1.3); BLOOD UREA NITROGEN,BUN 18 mg/dL (7-18); CARBON DIOXIDE,CO2 27 mmol/L (21-32); CHLORIDE,CL 106 mmol/L (100-110); CREATININE 1.0 mg/dL (0.55-1.02); EST CRCL DRUG DOSING (CG) 37.26 mL/min; ESTIMATED GFR 58 mL/min (>60); GLUCOSE RANDOM 88 mg/dL (80-116); LACTATE DEHYDROGENASE,LDH 187 U/L (81-234); POTASSIUM,K 4.0 mmol/L (3.5-5.3); PROTEIN TOTAL,TP 7.0 g/dL (6.0-8.0); SODIUM,NA 140 mmol/L (135-145)
[2025-01-30 07:37] LABS: BLASTS PERCENT MAN 4 % (0-0); LYMPHOCYTES % ATYPICAL MANUAL 4 % (0-0); LYMPHOCYTES PERCENT MAN 24 % (13-37); MONOCYTES PERCENT MAN 26 % (4-12); SEG NEUTROPHILS PERCENT MAN 42 % (46-82)
[2025-01-30 10:48] VITALS: BP 148/69; PULSE 88
[2025-02-01 16:50] LABS: ALDOLASE 2.0 U/L (1.2-7.6)
== END 2025-01-30 12:15 | disposition home or self-care (01) ==
LOC: FB.ED 09:08 → FB.MS 11:31
PROVIDERS: ADMIT Internal Medicine; ATTEND Family Medicine
DX: R53.1 Weakness (principal); I10 Essential (primary) hypertension; E78.5 Hyperlipidemia, unspecified; M79.606 Pain in leg, unspecified; M79.10 Myalgia, unspecified site; F32.9 Major depressive disorder, single episode, unspecified; Z88.8 Allergy status to other drugs, medicaments and biological substances; Z79.899 Other long term (current) drug therapy; Z20.822 Contact with and (suspected) exposure to COVID-19; W19.XXXA Unspecified fall, initial encounter
CPT/HCPCS: 36415; 70450; 71045; 74177; 80053; 81001; 82085; 82550; 83605; 83615; 83735; 84443; 84484; 85025; 85651; 86140; 87428; 93005; 96360; 97161; 97165; 99285; A9270; J1644; J7030; Q9967; 96372; 99222; 99239; G0378